=== PATIENT | male | born 1960 | race Asian ===

== ENCOUNTER 2018-04-24 18:07 | Emergency (ER) | payer MEDICAID ==
[~2018-04-24] VITALS: Ht 160 cm; Wt 65.9 kg
[2018-04-24 18:12] VITALS: Ht 160 cm; Wt 65.9 kg
[2018-04-24] MEDS ORDERED: ZYLOPRIM300 MG PO (18:17)
[2018-04-24] MEDS ORDERED: MOBIC7.5 MG PO (18:17)
[2018-04-24 19:40] LABS: BASOPHILS 0.3 % (0-2); EOSINOPHILS 4.2 % (0-7); HEMATOCRIT 43.7 % (42.0-54.0); IMMATURE GRANULOCYTES 0.6 % (0-5); MCH 30.8 pg (26.0-34.0); MCHC 34.3 g/dL (31.0-37.0); MCV 89.7 fL (80.0-100.0); MEAN PLATELET VOLUME 9.7 fL (7.4-10.4); MONOCYTES 8.3 % (2-11); NEUTROPHILS 57.6 % (40-80); PLATELET COUNT 298 10x3/uL (130-400); RBC 4.87 10x6/uL (4.20-6.10); RDW 12.4 % (11.5-14.5); WBC 7.9 10x3/uL (4.8-10.8)
[2018-04-24 19:52] LABS: ALBUMIN 3.6 g/dL (3.4-5.0); ALKALINE PHOSPHATASE 89 U/L (46-116); ALT (SGPT) 31 U/L (10-68); BILIRUBIN - TOTAL 0.31 mg/dL (0.2-1.3); CALC OSMOLALITY 285 mosm/kg (275-300); CALCIUM 9.7 mg/dL (8.5-10.1); CARBON DIOXIDE 30.1 mmol/L (21.0-32.0); CHLORIDE - SERUM 105 mmol/L (98-107); CREATININE - SERUM 1.1 mg/dL (0.6-1.3); GLUCOSE 102 mg/dL (74-106); POTASSIUM - SERUM 3.7 mmol/L (3.5-5.1); PROTEIN - SERUM 8.9 g/dL (6.4-8.2); SODIUM 143 mmol/L (136-145); UREA NITROGEN 16 mg/dL (7-18); eGFR NON AFRICAN AMERICAN 74 mL/min (90-120)
[2018-04-24 20:03] LABS: AMYLASE - SERUM 86 U/L (25-115); CREATINE KINASE 274 UL (21-232); LIPASE 223 U/L (73-393); URIC ACID 7.8 mg/dL (2.6-7.2)
[2018-04-24 20:04] LABS: TROPONIN-I < 0.017 ng/mL (0.000-0.060)
[2018-04-24] MEDS ORDERED: PROTONIX40 MG PO (20:31)
[2018-04-24 20:46] VITALS: BP 158/76
== END 2018-04-24 20:47 | disposition home or self-care (01) ==
LOC: D.ER 18:07
PROVIDERS: Family Medicine
DX: R06.6 Hiccough (principal); K29.70 Gastritis, unspecified, without bleeding; K21.9 Gastro-esophageal reflux disease without esophagitis